=== PATIENT | male | born 1965 | race Caucasian/White ===

== ENCOUNTER 2016-12-22 02:20 | Inpatient (IN) | payer OTHER ==
[~2016-12-22] VITALS: Ht 177.8 cm; Wt 117.0 kg
[~2016-12-22 02:20] MED LIST: LSN/10125 PO; SIMV20TA2 PO
[2016-12-22] MEDS ORDERED: DILTIAZEM HCL 5 MG/ML 5 ML VIAL ONE (02:43)
[2016-12-22] MEDS ORDERED: DILTIAZEM HCL 5 MG/ML 5 ML VIAL IV STA (02:43)
[2016-12-22 02:49] LABS: BASO % 0.6 %; BASO ABS # 0.06 K/uL (0-0.2); COMPLETE YES; EOS % 5.2 %; HEMATOCRIT 47.4 % (42-52); IG% 0.6 %; LYMPH % 15.6 %; LYMPH ABS # 1.64 K/uL (1.2-3.4); MEAN CELL VOLUME 85.4 fL (80-100); MEAN CORPUSCULAR HGB CONC 36.3 g/dl (32-36); MONO % 7.4 %; NEUT % 70.6 %; PLATELET COUNT 230 K/uL (130-400); RED BLOOD COUNT 5.55 M/uL (4.7-6.1); WHITE BLOOD COUNT 10.48 K/uL (4.8-10.8)
[2016-12-22 02:56] LABS: PARTIAL THROMBOPLASTIN RATIO 1.1
[2016-12-22] MEDS ORDERED: LISI-461 PO (03:01)
[2016-12-22] MEDS ORDERED: PRT/20 PO (03:01)
[2016-12-22 03:36] LABS: ALB/GLOB RATIO 1.3 (0.9-2); ALKALINE PHOSPHATASE 72 U/L (45-117); ALT/SGPT 80 U/L (12-78); BLOOD UREA NITROGEN 19 mg/dl (7-18); BUN/CREATININE RATIO 16.1 (10-20); CALCIUM 8.8 mg/dl (8.5-10.1); CARBON DIOXIDE 24 mmol/L (21-32); CHLORIDE 107 mmol/L (98-107); GLUCOSE 133 mg/dl (70-99); SODIUM 142 mmol/L (136-145)
[2016-12-22 03:44] LABS: POTASSIUM 3.6 mmol/L (3.5-5.1)
[2016-12-22 03:49] LABS: AST/SGOT 39 U/L (15-37); CKMB/CK RATIO 1.1 (0-3.0); MAGNESIUM 1.9 mg/dl (1.8-2.4)
[2016-12-22 04:00] LABS: URINE APPEARANCE CLEAR (CLEAR); URINE BILIRUBIN NEG (NEG); URINE COLOR YELLOW; URINE EPITHELIAL CELL AUTO 0-5 /lpf (0-5); URINE NITRITE NEG (NEG); URINE SPECIFIC GRAVITY 1.002 (1.000-1.030); UROBILINOGEN NEG (NEG); ZZUR CULT IF INDIC CLEAN CATCH NO
[2016-12-22 04:05] LABS: MANUAL MICROSCOPIC REQUIRED? NO; REVIEW REQ? NO
[2016-12-22 04:27] LABS: LYME DISEASE AB IGG NEG (NEG); LYME DISEASE AB IGM NEG (NEG)
[2016-12-22] MEDS ORDERED: HEPARIN 25000 UNIT/500 ML D5W ONE (04:50)
[2016-12-22] MEDS ORDERED: HEPARIN SOD 5000 UNIT/0.5 ML CARP ONE (04:50)
[2016-12-22] MEDS ORDERED: ACETAMINOPHEN 325 MG TAB PO PRN (06:00)
[2016-12-22] MEDS ORDERED: ONDANSETRON INJ 2 MG/ML 2 ML VIAL IV PRN (06:00)
[2016-12-22] MEDS ORDERED: POLYETHYLENE (MIRALAX) 17 GM PACK PO PRN (06:00)
--- NOTE | 2016-12-22 06:33 | History and Physical ---
History & Physical Date & Time of Service: Dec 22, 2016 at 06:14 Chief Complaint: Heart Palp Primary Care Physician: Chidi Mauricio M.D. History of Present Illness Source: patient, spouse 51 yoM with HTN presents today after new onset of significant palpitations after laying down to go to sleep. He denies any chest pain or shortness of breath. EMS found that he was in atrial fibrillation with RVR. In the ER HR was 130s and he was given some Cardizem with an improvement in both the rate and symptoms. He denies any recent infectious symptoms, recent medication changes. He denies a h/o palpitations. He was placed on a heparin drip in the ER Past Medical/Surgical History Medical Problems: (1) Erectile dysfunction Status: Chronic (2) GERD (gastroesophageal reflux disease) Status: Chronic (3) H/O prostate cancer Status: Chronic (4) Hypercholesteremia Status: Chronic (5) Hypertension Status: Chronic Family History FH: melanoma SISTER FH: multiple myeloma FATHER FH: prostate cancer FATHER Social History Smoking Status: Never Smoker Smokeless Tobacco Use: No Alcohol Use: none Drug Use: none Marital Status: Housing status: lives with significant other Occupational Status: employed Immunizations History of Influenza Vaccine: Yes Influenza Vaccine Date: Oct 05, 2016 History of Tetanus Vaccine?: Yes Tetanus Immunization Date: Nov 25, 2013 History of Pneumococcal: No History of Hepatitis B Vaccine: No Hepatitis Immunization Date: Jan 01, 2006 Multi-Drug Resistant Organisms History of MDRO: No Allergies Coded Allergies: No Known Allergies (Unverified , 12/22/16) Home Medications Scheduled Cholecalciferol (D 1000), 1,000 UNITS PO DAILY Hctz/Lisinopril (Lisinopril/Hctz 10/12.5 Mg), 1 TAB PO DAILY Pantoprazole (Protonix), 20 MG PO DAILY Simvastatin (Zocor), 20 MG PO QPM Scheduled PRN Ibuprofen Tab (Advil), 200 MG PO DAILY PRN for headache Sildenafil Citrate (Viagra), 1 TAB PO DAILY PRN for intercourse Review of Systems Constitutional: No chills, No fatigue, No fever ENT: No sore throat Respiratory: No cough, No shortness of breath, No wheezing Cardiovascular: + palpitations, No chest pain, No edema Abdomen: No GI bleeding, No constipation, No diarrhea, No nausea, No pain, No vomiting Musculoskeletal: No joint pain, No muscle pain Genitourinary - Male: No urinary frequency, No urinary hesitancy, No urinary incontinence, No urinary urgency Neurologic: No numbness/tingling Hematologic / Lymphatic: No abnormal bleeding/bruising Integumentary: No new/changing skin lesions Physical Exam Vital Signs Date Time Temp Pulse Resp B/P Pulse Ox O2 Delivery O2 Flow Rate FiO2 12/22/16 05:00 76 93 12/22/16 04:59 115/74 12/22/16 04:45 81 96 12/22/16 04:30 82 92 12/22/16 04:29 119/76 12/22/16 04:15 81 96 12/22/16 04:00 74 96 12/22/16 03:45 82 96 12/22/16 03:30 75 95 12/22/16 03:29 112/78 12/22/16 03:15 76 95 12/22/16 03:00 83 94 12/22/16 02:59 122/81 12/22/16 02:53 106/80 12/22/16 02:45 96 95 12/22/16 02:43 96 Room Air 12/22/16 02:43 96 Room Air 12/22/16 02:34 140 12/22/16 02:32 146/86 12/22/16 02:27 36.6 79 18 135/85 98 Room Air GEN: WNWD, in no acute distress, alert and appropriate HEENT: NC/AT, PERRL, normal sclerae CARDIO: reg rate, S1/2 heard without m/g/r LUNGS: CTA bilaterally, no crackles, rales or wheezes, good diaphragmatic excursion ABD: soft, non-tender, non-distended, no rebound or guarding EXTREMITY: RP and DP palpable 2+ bilat, no LE swelling or edema, extremities are warm and well-perfused NEURO: CN 2-12 grossly intact, sensation intact throughout MUSC: 5/5 strength grossly intact throughout, no focal deficits SKIN: warm and dry Diagnostics Laboratory Results Results Past 24 Hours Test 12/22/16 02:40 12/22/16 03:08 12/22/16 03:30 Range/Units White Blood Count 10.48 4.8-10.8 K/uL Red Blood Count 5.55 4.7-6.1 M/uL Hemoglobin 17.2 14.0-18.0 g/dL Hematocrit 47.4 42-52 % Mean Corpuscular Volume 85.4 80-100 fL Mean Corpuscular Hemoglobin 31.0 25-34 pg Mean Corpuscular Hemoglobin Concent 36.3 32-36 g/dl Platelet Count 230 130-400 K/uL Mean Platelet Volume 10.0 7.4-10.4 fL Neutrophils (%) (Auto) 70.6 % Lymphocytes (%) (Auto) 15.6 % Monocytes (%) (Auto) 7.4 % Eosinophils (%) (Auto) 5.2 % Basophils (%) (Auto) 0.6 % Neutrophils # (Auto) 7.40 1.4-6.5 K/uL Lymphocytes # (Auto) 1.64 1.2-3.4 K/uL Monocytes # (Auto) 0.78 0.11-0.59 K/uL Eosinophils # (Auto) 0.54 0-0.5 K/uL Basophils # (Auto) 0.06 0-0.2 K/uL RDW Standard Deviation 39.7 36.4-46.3 fL RDW Coefficient of Variation 12.8 11.5-14.5 % Immature Granulocyte % (Auto) 0.6 % Immature Granulocyte # (Auto) 0.06 0.00-0.02 K/uL Prothrombin Time 11.0 9.0-12.0 SECONDS Prothromb Time International Ratio 1.0 0.9-1.1 Activated Partial Thromboplast Time 27.5 21.0-31.0 SECONDS Partial Thromboplastin Ratio 1.1 Sodium Level 142 136-145 mmol/L Potassium Level 3.6 3.5-5.1 mmol/L Chloride Level 107 98-107 mmol/L Carbon Dioxide Level 24 21-32 mmol/L Anion Gap 11.0 3-11 mmol/L Blood Urea Nitrogen 19 7-18 mg/dl Creatinine 1.20 0.60-1.40 mg/dl Est Creatinine Clear Calc Drug Dose 94.4 ml/min Estimated GFR () 81.2 Estimated GFR (Non- 70.1 BUN/Creatinine Ratio 16.1 10-20 Random Glucose 133 70-99 mg/dl Calcium Level 8.8 8.5-10.1 mg/dl Magnesium Level 1.9 1.8-2.4 mg/dl Total Bilirubin 0.7 0.2-1 mg/dl Aspartate Amino Transf (AST/SGOT) 39 15-37 U/L Alanine Aminotransferase (ALT/SGPT) 80 12-78 U/L Alkaline Phosphatase 72 45-117 U/L Total Creatine Kinase 246 39-308 U/L Creatine Kinase MB 2.7 0.5-3.6 ng/ml Creatine Kinase MB Ratio 1.1 0-3.0 Troponin I < 0.015 0-0.045 ng/ml Total Protein 6.9 6.4-8.2 gm/dl Albumin 3.9 3.4-5.0 gm/dl Globulin 3.0 2.5-4.0 gm/dl Albumin/Globulin Ratio 1.3 0.9-2 Lipase 261 73-393 U/L Thyroid Stimulating Hormone (TSH) 6.600 0.300-4.500 uIu/ml Lyme Disease IgG Antibody NEG NEG Lyme Disease IgM Antibody NEG NEG Bedside Troponin I 0.000 0-0.045 ng/ml Urine Color YELLOW Urine Appearance CLEAR CLEAR Urine pH 6.0 4.5-7.5 Urine Specific [place] 1.002 1.000-1.030 Urine Protein NEG NEG Urine Glucose (UA) NEG NEG Urine Ketones NEG NEG Urine Occult Blood TRACE NEG Urine Nitrite NEG NEG Urine Bilirubin NEG NEG Urine Urobilinogen NEG NEG Urine Leukocyte Esterase NEG NEG Urine WBC (Auto) 0 0-5 /hpf Urine RBC (Auto) 0-4 0-4 /hpf Urine Hyaline Casts (Auto) 0 0-5 /lpf Urine Epithelial Cells (Auto) 0-5 0-5 /lpf Urine Bacteria (Auto) NEG NEG CXR normal EKG EKG: Afib 130, no ST changes Impression Assessment and Plan 51 yoM with HTN presents with new onset atrial fibrillation when he laid down to sleep last night 1. Palpitations 2/2 Atrial fibrillation-uncertain etiology, TSH checked, no HF signs or symptoms, no signs/symptoms of ACS, no murmurs on exam. He does admit to a lot of stress in his life recently. Ordered heparin drip, consulted cards. No PO rate control was started as will defer to cards who will see him soon. 2. Hypertension-controlled, cont home BP med. DVT prophy-heparin drip Full Code Violetta Rosas, DO [place] VTE Prophylaxis VTE Risk Assessment Done? Y/N: Yes Risk Level: Moderate Given or contraindicated: Other Anticoagulation
[2016-12-22] MEDS ORDERED: CHOL100041 PO (06:44)
[2016-12-22] MEDS ORDERED: IBUP-103 PO (06:44)
[2016-12-22] MEDS ORDERED: SILD50TA PO (06:44)
[2016-12-22] MEDS ORDERED: LSN/10125 PO (06:44)
[2016-12-22 07:46] VITALS: O2SAT 96; Ht 177.8 cm; Wt 117.0 kg
--- NOTE | 2016-12-22 07:54 | DIAGNOSTIC IMAGING REPORT ---
CHEST ONE VIEW PORTABLE CLINICAL HISTORY: Palpitations COMPARISON STUDY: 01/02/2012 FINDINGS: The cardiac and mediastinal contours are normal. There is no evidence of focal pulmonary consolidation. There is no evidence of failure. No pleural effusions are visualized.[ IMPRESSION: No active disease in the chest. Electronically signed by: Fernando Sandoval M.D. 12/22/2016 7:52 AM Dictated Date/Time: 12/22/2016 7:52 AM
[2016-12-22] MEDS ORDERED: CHOLECALCIFEROL 1000 INTER.UNIT TAB PO SCH (09:00)
[2016-12-22] MEDS ORDERED: PANTOprazole SOD 40 MG TAB PO SCH (09:00)
[2016-12-22] MEDS ORDERED: LISINOPRIL/HCTZ 10/12.5MG TAB PO SCH (09:00)
[2016-12-22 09:50] VITALS: O2SAT 95
[2016-12-22 09:50] LABS: CKMB/CK RATIO 1.4 (0-3.0)
[2016-12-22 10:57] VITALS: BP 135/92; PULSE 83; TEMP 36.6; O2SAT 95
[2016-12-22] MEDS ORDERED: HEPARIN 25,000 UNIT/500ML D5W 500 ML IV PRN (12:15)
[2016-12-22 12:30] LABS: PARTIAL THROMBOPLASTIN RATIO 2.1
[2016-12-22 15:17] LABS: CKMB/CK RATIO 1.4 (0-3.0)
[2016-12-22] MEDS ORDERED: METOPROLOL SUCC 25MG EXT REL TAB PO ONE (16:30)
--- NOTE | 2016-12-22 16:51 | CARDIOLOGY CONSULTATION ---
DATE OF CONSULTATION: 12/22/2016 REFERRING PHYSICIAN: Dr. Violetta Rosas. REASON FOR CONSULTATION: Atrial fibrillation. CHIEF COMPLAINT ON ADMISSION: Dizziness. HISTORY OF PRESENT ILLNESS: Mr. Rogers is a 51-year-old male with a past medical history of hypertension, erectile dysfunction, dyslipidemia, and prostate cancer. He developed palpitations with associated lightheadedness last evening. He awoke from sleep and spoke with his who assessed his pulse. She noted an irregular rhythm. He was brought to the Emergency Department. Initially he was found to be in atrial fibrillation with a heart rate in the 130s. He was given Cardizem in the Emergency Department. He was then evaluated by internal medicine and admitted to the telemetry unit. The patient converted to normal sinus rhythm at approximately 9:30 a.m. The heparin drip is infusing. He denies any history of TIA, CVA, rheumatic fever as a child, valvular heart disease, diabetes, congestive heart failure, or vascular disease. Notes elevated stress in his work duties. 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 Currently, the patient is asymptomatic and feeling well. He describes palpitations which have been intermittent over the past 12 months, however, have become more frequent over the past 3 months. He experiences palpitations on nearly a daily basis and notices that when he sits to watch television. Denies excessive caffeine or alcohol intake. No history of illicit drug use. Denies any fevers, chills or sick contacts. No exertional chest pain or unusual shortness of breath. His symptoms were initially noted last night after going for a walk with his . Cardiac enzymes are negative. Offers no other complaints at this time. REVIEW OF SYSTEMS: The pertinent positive noted above, a comprehensive 10-system review is otherwise negative. PAST MEDICAL HISTORY: 1. Hypertension. 2. Erectile dysfunction. 3. GERD. 4. Prostate cancer. 5. Dyslipidemia. PAST SURGICAL HISTORY: Denied. FAMILY HISTORY: Melanoma, multiple myeloma, prostate cancer. No family history of atrial fibrillation, cerebrovascular accident, or sudden cardiac . SOCIAL HISTORY: Lifelong nonsmoker. Does not use alcohol or illicit drugs. He is and lives with his . ALLERGIES: No known drug allergies. HOME MEDICATIONS: 1. Zestoretic 10/12.5 mg daily. 2. Protonix 20 mg daily. 3. Zocor 20 mg at bedtime. 4. Ibuprofen as needed. 5. Viagra as needed. IMAGING: Chest x-ray on admission is no acute disease. LABORATORY DATA: Lyme screen is negative. White blood cell count 10.48, hemoglobin is 17.2, platelet count is 230. Sodium 142, potassium 3.6, chloride 107, CO2 is 24, BUN is 19, creatinine is 1.20. Magnesium 1.9. Troponins are undetectable. TSH 6.60. Telemetry demonstrates sinus rhythm currently. PHYSICAL EXAMINATION: VITAL SIGNS: Temperature is 36.6 degrees centigrade, pulse 83 beats per minute and regular, respiratory rate is 18 breaths per minute, blood pressure 135/92. SAO2 is 95% on room air. GENERAL: NAD, awake, alert and oriented x3. THROAT: His mucous membranes are moist. There is no scleral icterus. Conjunctivae are pink. NECK: Supple. There is no JVD or HJR. No carotid bruit. HEART: Regular with a normal S1 and S2. There is no murmur, rub, or gallop. LUNGS: Clear without rales, rhonchi or wheeze. ABDOMEN: Soft and nontender. No rebound or guarding. Normal bowel sounds. EXTREMITIES: Warm and dry. There is no clubbing, cyanosis or edema. NEUROLOGIC: Demonstrates no focal deficit. FINAL IMPRESSION: 1. Paroxysmal atrial fibrillation with initial rapid ventricular response. The patient spontaneously converted to normal sinus rhythm this a.m. CHADS2 score equals 1. 2. Hypertension -- controlled. 3. Dyslipidemia. PLAN AND RECOMMENDATIONS: I had a long discussion with the patient and his regarding the natural history and pathophysiology of atrial fibrillation associated stroke risk. Recommend low-dose beta-laury therapy, Toprol-XL 25 mg daily. The patient will receive a dose x1 now. Warfarin versus DOAC medications reviewed at length. The patient and his are leaning towards DOAC therapy at this time, they would like to discuss further. A resting 2D transthoracic echo is pending currently. I will review his echo. If there are no structural abnormalities will plan for at least short term DOAC therapy in addition to beta-laury therapy. Would recommend outpatient cardiology followup in 2-4 weeks with case monitor at that time. The patient and his are agreeable. Further recommendations pending review of echocardiogram. Thank you for allowing me to take part in the care of your patient.
--- NOTE | 2016-12-22 17:06 | ECHOCARDIOGRAM REPORT ---
*NOTICE TO RECEIVING REPUBLICAN AGENCY This information is strictly Confidential and protected under [place] law. [place] law prohibits you from making any further disclosure of this information unless further disclosure is expressly permitted by the written consent of the person to whom it pertains or is authorized by law. A general authorization for the release of medical or other information is not sufficient for this purpose. Hospital accepts no responsibility if the information is made available to any other person, INCLUDING THE PATIENT. Interpretation Summary * Name: JONATHON BURNETT Study Date: 12/22/2016 02:55 PM * Patient Location: [facility] [address][id number] * : 1965 (M/d/yyyy) Gender: Male Height: 70 in * Age: 51 yrs Ethnicity: [place] Weight: 257 lb * Ordering Physician: Gio Rosas Physician: Self, Referred * Performed By: Jonathon Yoon RDCS * * Reason For Study: Palpitations * BSA: 2.3 m2 * The study was technically adequate. * Compared to prior study, there is no significant change. * -- Conclusions -- * Left ventricular systolic function is normal. * Ejection Fraction = 60-65%. * There is mild concentric left ventricular hypertrophy. * The left atrium is moderately dilated. * Grade I diastolic dysfunction, (abnormal relaxation pattern). * No significnat valvular pathology. Procedure Details * A complete two-dimensional transthoracic echocardiogram was performed (2D, M-mode, Doppler and color flow Doppler). Left Ventricle * The left ventricle is normal in size. * There is mild concentric left ventricular hypertrophy. * Left ventricular systolic function is normal. * Ejection Fraction = 60-65%. * The left ventricular wall motion is normal. Right Ventricle * The right ventricle is normal size. * The right ventricular systolic function is normal as assessed by tricuspid annular plane systolic excursion (TAPSE) (normal >1.5 cm). Atria * The left atrium is moderately dilated. * Right atrial size is normal. * There is no evidence of atrial septal defect, but resolution does not allow assessment for a patent foramen ovale. Mitral Valve * The mitral valve is normal. * There is no mitral valve stenosis. * Significant mitral regurgitation is absent. Tricuspid Valve * The tricuspid valve is normal. * There is no tricuspid stenosis. * Significant tricuspid regurgitation is absent. Aortic Valve * The aortic valve is trileaflet. * Aortic stenosis is absent. * There is no significant aortic regurgitation. Pulmonic Valve * The pulmonary valve is not well seen, but the Doppler examination is normal without significant regurgitation or stenosis. Great Vessels * The aortic root and proximal ascending aorta are normal sized. Pericardium/Pleural * There is no pericardial effusion. Great Vessels * Normal inferior vena cava diameter and respiratory variation suggests normal central venous pressure. Left Ventricular Diastolic Function * Grade I diastolic dysfunction, (abnormal relaxation pattern). MMode 2D Measurements and Calculations IVSd 1.7 cm IVSs 2.1 cm LVIDd 4.1 cm LVIDs 2.8 cm LVPWd 1.3 cm LVPWs 1.9 cm IVS/LVPW 1.4 FS 31.7 % EDV(Teich) 73.2 ml ESV(Teich) 29.2 ml EF(Teich) 60.2 % EDV(cubed) 67.7 ml ESV(cubed) 21.6 ml EF(cubed) 68.1 % % IVS thick 23.4 % % LVPW thick 50.7 % LV mass(C)d 240.7 grams LV mass(C)dI 103.6 grams/m\S\2 LV mass(C)s 250.4 grams LV mass(C)sI 107.8 grams/m\S\2 SV(Teich) 44.0 ml SI(Teich) 19.0 ml/m\S\2 SV(cubed) 46.1 ml SI(cubed) 19.9 ml/m\S\2 Ao root diam 3.4 cm Ao root area 9.1 cm\S\2 ACS 2.0 cm LA dimension 4.6 cm asc Aorta Diam 3.5 cm LA/Ao 1.4 LVOT diam 2.4 cm LVOT area 4.5 cm\S\2 LVAd ap4 27.7 cm\S\2 LVLd ap4 8.5 cm EDV(MOD-sp4) 74.3 ml LVAs ap4 15.2 cm\S\2 LVLs ap4 6.9 cm ESV(MOD-sp4) 28.2 ml EF(MOD-sp4) 62.0 % LVAd ap2 16.6 cm\S\2 LVLd ap2 7.7 cm EDV(MOD-sp2) 30.0 ml LVAs ap2 9.6 cm\S\2 LVLs ap2 6.9 cm ESV(MOD-sp2) 12.0 ml EF(MOD-sp2) 60.0 % SV(MOD-sp4) 46.1 ml SI(MOD-sp4) 19.9 ml/m\S\2 SV(MOD-sp2) 18.0 ml SI(MOD-sp2) 7.8 ml/m\S\2 Doppler Measurements and Calculations MV E max esteban 52.9 cm/sec MV A max esteban 50.4 cm/sec MV E/A 1.0 MV dec time 0.24 sec Ao V2 max 117.3 cm/sec Ao max PG 5.5 mmHg Ao max PG (full) 1.7 mmHg YANCY(V,A) 3.7 cm\S\2 YANCY(V,D) 3.7 cm\S\2 LV V1 max PG 3.8 mmHg LV V1 max 97.9 cm/sec PA V2 max 98.2 cm/sec PA max PG 3.9 mmHg
[2016-12-22] MEDS ORDERED: APIX1TAB3 PO (17:51)
[2016-12-22] MEDS ORDERED: TPRSR25 PO (17:51)
--- NOTE | 2016-12-22 17:53 | Discharge Instructions ---
Discharge Instructions Admission Reason for Admission: New Onset Atrial Fibrillation Discharge Discharge Diagnosis / Problem: PAF with RVR-reverted to SR ,HTN Discharge Goals Goal(s): Prevent Disease Progression Activity Recommendations Activity Limitations: resume your previous activity . Instructions / Follow-Up Instructions / Follow-Up Will call with appointments Current Hospital Diet Patient's current hospital diet: AHA Diet (Heart Healthy) Discharge Diet Recommended Diet: Regular Diet Pending Studies Studies pending at discharge: no Medical Emergencies . Who to Call and When: Medical Emergencies: If at any time you feel your situation is an emergency, please call 911 immediately. . Non-Emergent Contact Non-Emergency issues call your: Primary Care Provider . . "Provider Documentation" section prepared by Olivia Holm. VTE Core Measure Inpt VTE Proph given/why not?: Unfractionated heparin SQ (Eliquis), Other Anticoagulation
[2016-12-22 18:06] VITALS: BP 135/92; PULSE 83; TEMP 36.6; O2SAT 95
[2016-12-22] MEDS ORDERED: APIXABAN 2.5 MG TAB PO SCH (21:00)
[2016-12-22] MEDS ORDERED: SIMVASTATIN 20 MG TAB PO SCH (21:00)
[2016-12-23] MEDS ORDERED: METOPROLOL SUCC 25MG EXT REL TAB PO SCH (09:00)
--- NOTE | 2016-12-23 11:38 | Progress Note ---
Internal Med Progress Note Date of Service: Dec 22, 2016. Provider Documentation: SUBJECTIVE: The Patient was seen and examined Palpitation since 10 PM last night Resolve around 10AM this morning Denies any symptoms associated with it OBJECTIVE: Vital Signs-as noted below Exam: General-No distress at rest Eyes-normal ENT-normal Neck-supple Lungs-Clear to auscultate bilaterally Heart-Regular,no murmur appreciated Abdomen-Benign,no masses,bowel sound present Extremities-No edema Neuro-AAOx3 Lab data as noted below. ASSESSMENT & PLAN: Atrial Fibrillation with RVR Presented with Palpitations No ACS Has been started on IV heparin and IV Cardizem Reverted to SR this morning Cardiology consulted Hypertension-controlled, Cont home BP med. Controlled now Hyperlipidemia On Statin GERD Continue Protonix DVT prophy-heparin drip Full Code Vital Signs: Date Time Temp Pulse Resp B/P Pulse Ox O2 Delivery O2 Flow Rate FiO2 12/22/16 18:06 36.6 83 18 95 Room Air 12/22/16 15:41 Room Air Lab Results: Results Past 24 Hours Test 12/22/16 11:47 12/22/16 14:00 12/22/16 14:30 Range/Units Activated Partial Thromboplast Time 55.6 21.0-31.0 SECONDS Partial Thromboplastin Ratio 2.1 Creatine Kinase MB Ratio 1.4 0-3.0 Total Creatine Kinase 143 39-308 U/L Creatine Kinase MB 2.0 0.5-3.6 ng/ml Troponin I < 0.015 0-0.045 ng/ml
--- NOTE | 2016-12-23 11:41 | Discharge Summary ---
Discharge Summary Date of Service Dec 23, 2016. Discharge Summary Admission Date: Dec 22, 2016 at 06:13 Discharge Date: Dec 22, 2016 Discharge Disposition: Home Principal Diagnosis: PAF with RVR-reverted to SR ,HTN Secondary Diagnoses/Problems: Please see H&P Consultations: Cardiology Medication Reconciliation New Medications: Apixaban (Eliquis) 5 Mg Tab 5 MG PO BID, #60 TAB Metoprolol Succinate (Metoprolol Succinate ER) 25 Mg Tabcr 25 MG PO QAM for 30 Days, #30 Continued Medications: Cholecalciferol (D 1000) 1,000 Unit Cap 1000 UNITS PO DAILY Hctz/Lisinopril (Lisinopril/Hctz 10/12.5 Mg) 1 Ea Tab 1 TAB PO DAILY, 5 Refills Ibuprofen Tab (Advil) 200 Mg Tab 200 MG PO DAILY PRN for headache, TAB Try to avoid and try Tylenol instead Pantoprazole (Protonix) 20 Mg Tab 20 MG PO DAILY, #30 TAB Sildenafil Citrate (Viagra) 50 Mg Tab 1 TAB PO DAILY PRN for intercourse, 5 Refills Simvastatin (Zocor) 20 Mg Tab 20 MG PO QPM for 30 Days, 4 Refills Admission Information HPI (per Admitting provider): 51 yoM with HTN presents today after new onset of significant palpitations after laying down to go to sleep. He denies any chest pain or shortness of breath. EMS found that he was in atrial fibrillation with RVR. In the ER HR was 130s and he was given some Cardizem with an improvement in both the rate and symptoms. He denies any recent infectious symptoms, recent medication changes. He denies a h/o palpitations. He was placed on a heparin drip in the ER Past Medical/Surgical History Medical Problems: (1) Erectile dysfunction Status: Chronic (2) GERD (gastroesophageal reflux disease) Status: Chronic (3) H/O prostate cancer Status: Chronic (4) Hypercholesteremia Status: Chronic (5) Hypertension Status: Chronic Family History FH: melanoma SISTER FH: multiple myeloma FATHER FH: prostate cancer FATHER Social History Smoking Status: Never Smoker Smokeless Tobacco Use: No Alcohol Use: none Drug Use: none Marital Status: Housing status: lives with significant other Occupational Status: employed Immunizations History of Influenza Vaccine: Yes Influenza Vaccine Date: Oct 05, 2016 History of Tetanus Vaccine?: Yes Tetanus Immunization Date: Nov 25, 2013 History of Pneumococcal: No History of Hepatitis B Vaccine: No Hepatitis Immunization Date: Jan 01, 2006 Multi-Drug Resistant Organisms History of MDRO: No Allergies Coded Allergies: No Known Allergies (Unverified , 12/22/16) Home Medications Scheduled Cholecalciferol (D 1000), 1,000 UNITS PO DAILY Hctz/Lisinopril (Lisinopril/Hctz 10/12.5 Mg), 1 TAB PO DAILY Pantoprazole (Protonix), 20 MG PO DAILY Simvastatin (Zocor), 20 MG PO QPM Scheduled PRN Ibuprofen Tab (Advil), 200 MG PO DAILY PRN for headache Sildenafil Citrate (Viagra), 1 TAB PO DAILY PRN for intercourse Review of Systems Constitutional: No chills, No fatigue, No fever ENT: No sore throat Respiratory: No cough, No shortness of breath, No wheezing Cardiovascular: + palpitations, No chest pain, No edema Abdomen: No GI bleeding, No constipation, No diarrhea, No nausea, No pain, No vomiting Musculoskeletal: No joint pain, No muscle pain Genitourinary - Male: No urinary frequency, No urinary hesitancy, No urinary incontinence, No urinary urgency Neurologic: No numbness/tingling Hematologic / Lymphatic: No abnormal bleeding/bruising Integumentary: No new/changing skin lesions Physical Ex - H&P Physical Exam Vital Signs Date Time Temp Pulse Resp B/P Pulse Ox O2 Delivery O2 Flow Rate FiO2 12/22/16 05:00 76 93 12/22/16 04:59 115/74 12/22/16 04:45 81 96 12/22/16 04:30 82 92 12/22/16 04:29 119/76 12/22/16 04:15 81 96 12/22/16 04:00 74 96 12/22/16 03:45 82 96 12/22/16 03:30 75 95 12/22/16 03:29 112/78 12/22/16 03:15 76 95 12/22/16 03:00 83 94 12/22/16 02:59 122/81 12/22/16 02:53 106/80 12/22/16 02:45 96 95 12/22/16 02:43 96 Room Air 12/22/16 02:43 96 Room Air 12/22/16 02:34 140 12/22/16 02:32 146/86 12/22/16 02:27 36.6 79 18 135/85 98 Room Air GEN: WNWD, in no acute distress, alert and appropriate HEENT: NC/AT, PERRL, normal sclerae CARDIO: reg rate, S1/2 heard without m/g/r LUNGS: CTA bilaterally, no crackles, rales or wheezes, good diaphragmatic excursion ABD: soft, non-tender, non-distended, no rebound or guarding EXTREMITY: RP and DP palpable 2+ bilat, no LE swelling or edema, extremities are warm and well-perfused NEURO: CN 2-12 grossly intact, sensation intact throughout MUSC: 5/5 strength grossly intact throughout, no focal deficits SKIN: warm and dry Diagnostics - H&P Diagnostics Laboratory Results Results Past 24 Hours Test 12/22/16 02:40 12/22/16 03:08 12/22/16 03:30 Range/Units White Blood Count 10.48 4.8-10.8 K/uL Red Blood Count 5.55 4.7-6.1 M/uL Hemoglobin 17.2 14.0-18.0 g/dL Hematocrit 47.4 42-52 % Mean Corpuscular Volume 85.4 80-100 fL Mean Corpuscular Hemoglobin 31.0 25-34 pg Mean Corpuscular Hemoglobin Concent 36.3 32-36 g/dl Platelet Count 230 130-400 K/uL Mean Platelet Volume 10.0 7.4-10.4 fL Neutrophils (%) (Auto) 70.6 % Lymphocytes (%) (Auto) 15.6 % Monocytes (%) (Auto) 7.4 % Eosinophils (%) (Auto) 5.2 % Basophils (%) (Auto) 0.6 % Neutrophils # (Auto) 7.40 1.4-6.5 K/uL Lymphocytes # (Auto) 1.64 1.2-3.4 K/uL Monocytes # (Auto) 0.78 0.11-0.59 K/uL Eosinophils # (Auto) 0.54 0-0.5 K/uL Basophils # (Auto) 0.06 0-0.2 K/uL RDW Standard Deviation 39.7 36.4-46.3 fL RDW Coefficient of Variation 12.8 11.5-14.5 % Immature Granulocyte % (Auto) 0.6 % Immature Granulocyte # (Auto) 0.06 0.00-0.02 K/uL Prothrombin Time 11.0 9.0-12.0 SECONDS Prothromb Time International Ratio 1.0 0.9-1.1 Activated Partial Thromboplast Time 27.5 21.0-31.0 SECONDS Partial Thromboplastin Ratio 1.1 Sodium Level 142 136-145 mmol/L Potassium Level 3.6 3.5-5.1 mmol/L Chloride Level 107 98-107 mmol/L Carbon Dioxide Level 24 21-32 mmol/L Anion Gap 11.0 3-11 mmol/L Blood Urea Nitrogen 19 7-18 mg/dl Creatinine 1.20 0.60-1.40 mg/dl Est Creatinine Clear Calc Drug Dose 94.4 ml/min Estimated GFR () 81.2 Estimated GFR (Non- 70.1 BUN/Creatinine Ratio 16.1 10-20 Random Glucose 133 70-99 mg/dl Calcium Level 8.8 8.5-10.1 mg/dl Magnesium Level 1.9 1.8-2.4 mg/dl Total Bilirubin 0.7 0.2-1 mg/dl Aspartate Amino Transf (AST/SGOT) 39 15-37 U/L Alanine Aminotransferase (ALT/SGPT) 80 12-78 U/L Alkaline Phosphatase 72 45-117 U/L Total Creatine Kinase 246 39-308 U/L Creatine Kinase MB 2.7 0.5-3.6 ng/ml Creatine Kinase MB Ratio 1.1 0-3.0 Troponin I < 0.015 0-0.045 ng/ml Total Protein 6.9 6.4-8.2 gm/dl Albumin 3.9 3.4-5.0 gm/dl Globulin 3.0 2.5-4.0 gm/dl Albumin/Globulin Ratio 1.3 0.9-2 Lipase 261 73-393 U/L Thyroid Stimulating Hormone (TSH) 6.600 0.300-4.500 uIu/ml Lyme Disease IgG Antibody NEG NEG Lyme Disease IgM Antibody NEG NEG Bedside Troponin I 0.000 0-0.045 ng/ml Urine Color YELLOW Urine Appearance CLEAR CLEAR Urine pH 6.0 4.5-7.5 Urine Specific [place] 1.002 1.000-1.030 Urine Protein NEG NEG Urine Glucose (UA) NEG NEG Urine Ketones NEG NEG Urine Occult Blood TRACE NEG Urine Nitrite NEG NEG Urine Bilirubin NEG NEG Urine Urobilinogen NEG NEG Urine Leukocyte Esterase NEG NEG Urine WBC (Auto) 0 0-5 /hpf Urine RBC (Auto) 0-4 0-4 /hpf Urine Hyaline Casts (Auto) 0 0-5 /lpf Urine Epithelial Cells (Auto) 0-5 0-5 /lpf Urine Bacteria (Auto) NEG NEG CXR normal EKG EKG: Afib 130, no ST changes Impression - H&P Impression Assessment and Plan 51 yoM with HTN presents with new onset atrial fibrillation when he laid down to sleep last night 1. Palpitations 2/2 Atrial fibrillation-uncertain etiology, TSH checked, no HF signs or symptoms, no signs/symptoms of ACS, no murmurs on exam. He does admit to a lot of stress in his life recently. Ordered heparin drip, consulted cards. No PO rate control was started as will defer to cards who will see him soon. 2. Hypertension-controlled, cont home BP med. DVT prophy-heparin drip Full Code Violetta Rosas, DO [place] VTE Prophylaxis VTE Risk Assessment Done? Y/N: Yes Risk Level: Moderate Given or contraindicated: Other Anticoagulation Physical Exam (per Admitting): GEN: WNWD, in no acute distress, alert and appropriate HEENT: NC/AT, PERRL, normal sclerae CARDIO: reg rate, S1/2 heard without m/g/r LUNGS: CTA bilaterally, no crackles, rales or wheezes, good diaphragmatic excursion ABD: soft, non-tender, non-distended, no rebound or guarding EXTREMITY: RP and DP palpable 2+ bilat, no LE swelling or edema, extremities are warm and well-perfused NEURO: CN 2-12 grossly intact, sensation intact throughout MUSC: 5/5 strength grossly intact throughout, no focal deficits SKIN: warm and dry Hospital Course ASSESSMENT & PLAN: Atrial Fibrillation with RVR Presented with Palpitations No ACS Has been started on IV heparin and IV Cardizem Reverted to SR this morning Cardiology consulted Hypertension-controlled, Cont home BP med. Controlled now Hyperlipidemia On Statin GERD Continue Protonix DVT prophy-heparin drip Full Code Discussed with Cardiology Can go home on Toprol XL and Eliquis Total time spent on discharge = 35 minutes This includes examination of the patient, discharge planning, medication reconciliation, and communication with other providers. Discharge Instructions Admission Reason for Admission: New Onset Atrial Fibrillation Discharge Discharge Diagnosis / Problem: PAF with RVR-reverted to SR ,HTN Discharge Goals Goal(s): Prevent Disease Progression Activity Recommendations Activity Limitations: resume your previous activity . Instructions / Follow-Up Instructions / Follow-Up Will call with appointments Current Hospital Diet Patient's current hospital diet: AHA Diet (Heart Healthy) Discharge Diet Recommended Diet: Regular Diet Pending Studies Studies pending at discharge: no Medical Emergencies . Who to Call and When: Medical Emergencies: If at any time you feel your situation is an emergency, please call 911 immediately. . Non-Emergent Contact Non-Emergency issues call your: Primary Care Provider . . "Provider Documentation" section prepared by Olivia Holm. VTE Core Measure Inpt VTE Proph given/why not?: Unfractionated heparin SQ (Eliquis), Other Anticoagulation <Electronically signed by Olivia Holm M.D.> Additional Copies To Chidi Mauricio M.D.
--- NOTE | 2016-12-26 11:16 | EMERGENCY ROOM VISIT NOTE ---
History First contact with patient: 02:33 Chief Complaint: PALPITATIONS Stated Complaint: NEW ONSET ATRIAL FIBRILLATION Nursing Triage Summary: pt c/o heart palpitations since around 2329, pt was unable to sleep due to it, no cardiac hx. pt states his jaw hurts but he also has tmj, also getting dizzy with change in position History of Present Illness The patient is a 51 year old male who presents to the Emergency Department by private vehicle for evaluation of his palpitations and dizziness with movement. The patient reports that while laying in bed this evening at 11 PM he noticed that his heart was racing and felt a fluttering sensation as well. In addition , he noticed dizziness with changes in position. He denies any pain in his chest, however rating his discomfort a 0/10. He reports no history of similar symptoms. He was enjoying his typical state of good health and actually had gone a walk this evening with his without issue. The patient denies any history of coronary artery disease. He does report a history of hypertension as well as hyperlipidemia. The patient denies any significant family cardiac disease otherwise. He denies any fevers, chills, recent illness, headaches, slurred speech, facial droop, unilateral weakness/numbness, chest pain, hemoptysis, nausea, vomiting, or abdominal pain. He denies any recent alcohol use. He reports no recent stimulant use. Review of Systems A complete 10-point Review of Systems was discussed with the patient, with pertinent positives and negatives listed in the History of Present Illness. All remaining Review of Systems questions can be considered negative unless otherwise specified. Past Medical/Surgical History Medical Problems: (1) CA head of pancreas (2) Erectile dysfunction (3) GERD (gastroesophageal reflux disease) (4) H/O prostate cancer (5) Hypercholesteremia (6) Hypertension Surgical Problems: (1) S/P prostatectomy Family History FH: melanoma SISTER FH: multiple myeloma FATHER FH: prostate cancer FATHER Social History Smoking Status: Never Smoker Smokeless Tobacco Use: No Alcohol Use: none Drug Use: none Marital Status: Occupation Status: employed Current/Historical Medications Scheduled Apixaban (Eliquis), 5 MG PO BID Cholecalciferol (D 1000), 1,000 UNITS PO DAILY Hctz/Lisinopril (Lisinopril/Hctz 10/12.5 Mg), 1 TAB PO DAILY Metoprolol Succinate (Metoprolol Succinate ER), 25 MG PO QAM Pantoprazole (Protonix), 20 MG PO DAILY Simvastatin (Zocor), 20 MG PO QPM Scheduled PRN Ibuprofen Tab (Advil), 200 MG PO DAILY PRN for headache Sildenafil Citrate (Viagra), 1 TAB PO DAILY PRN for intercourse Allergies Coded Allergies: No Known Allergies (Unverified , 12/22/16) Physical Exam Vital Signs Date Time Temp Pulse Resp B/P Pulse Ox O2 Delivery O2 Flow Rate FiO2 12/22/16 06:05 82 95 12/22/16 05:59 116/81 12/22/16 05:35 83 94 12/22/16 05:29 121/90 12/22/16 05:05 86 97 12/22/16 05:00 76 93 12/22/16 04:59 115/74 12/22/16 04:45 81 96 12/22/16 04:30 82 92 12/22/16 04:29 119/76 12/22/16 04:15 81 96 12/22/16 04:00 74 96 12/22/16 03:45 82 96 12/22/16 03:30 75 95 12/22/16 03:29 112/78 12/22/16 03:15 76 95 12/22/16 03:00 83 94 12/22/16 02:59 122/81 12/22/16 02:53 106/80 12/22/16 02:45 96 95 12/22/16 02:43 96 Room Air 12/22/16 02:43 96 Room Air 12/22/16 02:34 140 12/22/16 02:32 146/86 12/22/16 02:27 36.6 79 18 135/85 98 Room Air Pain Rating (0-10): 0 Physical Exam VITAL SIGNS - Vital signs and nursing notes were reviewed. GENERAL - 51-year-old male appearing his stated age who is in no acute distress. Communicates well with provider and answers questions appropriately. LUNGS - Chest wall symmetric without accessory muscle use, intercostals retractions, or central cyanosis. Normal vesicular breath sounds CTA B/L. No wheezes, rales, or rhonchi appreciated. CARDIAC - RRR with S1/S2. No murmur, rubs, or gallops appreciated. No reproducible tenderness to palpation appreciated over the anterior chest wall. ABDOMEN - Abdominal contour obese and without pulsations or visible masses. BS normoactive all four quadrants. No tenderness, palpable masses, hepatosplenomegaly, or ascites noted. EXTREMITIES - No clubbing or peripheral cyanosis. No pretibial edema present. +3 /5 radial and dorsalis pedis pulses palpated throughout. +5/5 strength noted in UE/LE bilaterally. NEUROLOGIC - Cranial nerves II through XII grossly intact. Sensory intact to light touch throughout. PSYCH - A&Ox3 and cooperates fully with examiner. Pt is very pleasant and interacts well with examiner. Medical Decision & Procedures ER Provider Diagnostic Interpretation: Radiological imaging and reports were reviewed by myself. Radiologist's Interpretation as follows: CHEST ONE VIEW PORTABLE CLINICAL HISTORY: Palpitations COMPARISON STUDY: 01/02/2012 FINDINGS: The cardiac and mediastinal contours are normal. There is no evidence of focal pulmonary consolidation. There is no evidence of failure. No pleural effusions are visualized.[ IMPRESSION: No active disease in the chest. Laboratory Results 12/22/16 02:40 Red Blood Count 5.55, Mean Corpuscular Volume 85.4, Mean Corpuscular Hemoglobin 31.0, Mean Corpuscular Hemoglobin Concent 36.3, Mean Platelet Volume 10.0, Neutrophils (%) (Auto) 70.6, Lymphocytes (%) (Auto) 15.6, Monocytes (%) (Auto) 7.4, Eosinophils (%) (Auto) 5.2, Basophils (%) (Auto) 0.6, Neutrophils # (Auto) 7.40, Lymphocytes # (Auto) 1.64, Monocytes # (Auto) 0.78, Eosinophils # (Auto) 0.54, Basophils # (Auto) 0.06 12/22/16 02:40 Test 12/22/16 02:40 12/22/16 03:08 12/22/16 03:30 White Blood Count 10.48 K/uL (4.8-10.8) Red Blood Count 5.55 M/uL (4.7-6.1) Hemoglobin 17.2 g/dL (14.0-18.0) Hematocrit 47.4 % (42-52) Mean Corpuscular Volume 85.4 fL (80-100) Mean Corpuscular Hemoglobin 31.0 pg (25-34) Mean Corpuscular Hemoglobin Concent 36.3 g/dl (32-36) Platelet Count 230 K/uL (130-400) Mean Platelet Volume 10.0 fL (7.4-10.4) Neutrophils (%) (Auto) 70.6 % Lymphocytes (%) (Auto) 15.6 % Monocytes (%) (Auto) 7.4 % Eosinophils (%) (Auto) 5.2 % Basophils (%) (Auto) 0.6 % Neutrophils # (Auto) 7.40 K/uL (1.4-6.5) Lymphocytes # (Auto) 1.64 K/uL (1.2-3.4) Monocytes # (Auto) 0.78 K/uL (0.11-0.59) Eosinophils # (Auto) 0.54 K/uL (0-0.5) Basophils # (Auto) 0.06 K/uL (0-0.2) RDW Standard Deviation 39.7 fL (36.4-46.3) RDW Coefficient of Variation 12.8 % (11.5-14.5) Immature Granulocyte % (Auto) 0.6 % Immature Granulocyte # (Auto) 0.06 K/uL (0.00-0.02) Prothrombin Time 11.0 SECONDS (9.0-12.0) Prothromb Time International Ratio 1.0 (0.9-1.1) Anion Gap 11.0 mmol/L (3-11) Est Creatinine Clear Calc Drug Dose 94.4 ml/min Estimated GFR () 81.2 Estimated GFR (Non- 70.1 BUN/Creatinine Ratio 16.1 (10-20) Calcium Level 8.8 mg/dl (8.5-10.1) Magnesium Level 1.9 mg/dl (1.8-2.4) Total Bilirubin 0.7 mg/dl (0.2-1) Aspartate Amino Transf (AST/SGOT) 39 U/L (15-37) Alanine Aminotransferase (ALT/SGPT) 80 U/L (12-78) Alkaline Phosphatase 72 U/L (45-117) Total Protein 6.9 gm/dl (6.4-8.2) Albumin 3.9 gm/dl (3.4-5.0) Globulin 3.0 gm/dl (2.5-4.0) Albumin/Globulin Ratio 1.3 (0.9-2) Lipase 261 U/L (73-393) Thyroid Stimulating Hormone (TSH) 6.600 uIu/ml (0.300-4.500) Lyme Disease IgG Antibody NEG (NEG) Lyme Disease IgM Antibody NEG (NEG) Bedside Troponin I 0.000 ng/ml (0-0.045) Urine Color YELLOW Urine Appearance CLEAR (CLEAR) Urine pH 6.0 (4.5-7.5) Urine Specific [place] 1.002 (1.000-1.030) Urine Protein NEG (NEG) Urine Glucose (UA) NEG (NEG) Urine Ketones NEG (NEG) Urine Occult Blood TRACE (NEG) Urine Nitrite NEG (NEG) Urine Bilirubin NEG (NEG) Urine Urobilinogen NEG (NEG) Urine Leukocyte Esterase NEG (NEG) Urine WBC (Auto) 0 /hpf (0-5) Urine RBC (Auto) 0-4 /hpf (0-4) Urine Hyaline Casts (Auto) 0 /lpf (0-5) Urine Epithelial Cells (Auto) 0-5 /lpf (0-5) Urine Bacteria (Auto) NEG (NEG) Medications Administered Medications (Trade) Dose Ordered Sig/Lisa Route Start Time Stop Time Status Last Admin Dose Admin Diltiazem HCl (Cardizem Inj) 20 mg NOW STAT IV 12/22/16 02:43 12/22/16 02:44 DC 12/22/16 02:49 20 MG Heparin Sodium/ Dextrose (Heparin 25,000 Unit/500ml D5W) 25,000 unit STK-MED ONCE .ROUTE 12/22/16 04:50 12/22/16 04:52 DC 12/22/16 05:01 1,650 UNIT Heparin Sodium (Porcine) (Heparin Sq 5000 Unit/0.5ml) 10,000 unit STK-MED ONCE .ROUTE 12/22/16 04:50 12/22/16 04:53 DC 12/22/16 05:03 7,000 UNIT Acetaminophen (Tylenol Tab) 650 mg Q4H PRN PO 12/22/16 06:00 12/22/16 20:26 DC 12/22/16 17:13 650 MG Procedure Patient was placed on the monitoring coordinator and monitored throughout the entire extent of their stay. In addition, the patient's pulse oximetry was monitored throughout the entire stay. Any abnormalities or aberrancies were addressed appropriately. ECG Indication: palpitations Rate (beats per minute): 130 Rhythm: atrial fibrillation Findings: ST depression (Lateral) Comparison ECG Date: a.fib when compared to NRS from 01/03/2012. ED Course I was approached by nursing staff and asked to see the patient emergently secondary to patient's symptoms and EKG findings concerning for acute atrial fibrillation with a heart rate in the 130s. Patient was seen and evaluated by myself in the trauma room B1. Labs were drawn, saline lock in place. EKG and chest x-rays were obtained. Case was discussed with my attending physician. Patient was treated with 20 mg Cardizem intravenously with moderate decrease in heart rate. The patient remains in A. fib, however. The patient clinically feels much better at this time and is less lightheaded. Chest x-ray is unremarkable. Cardiac enzymes are not elevated. Patient was started on heparin intravenously [facility] and [facility]. Patient admitted in fair condition. Medical Decision Given the patient's presentation, I did elect to perform the above-mentioned workup. The patient presents today with new onset atrial fibrillation. He was found to be experiencing rapid ventricular response per his EKG. He is lightheaded. He is normotensive, thankfully, however the patient is certain he symptomatically with lightheadedness. The patient responded well to emergent intravenous Cardizem with adequate declining his heart rate. His blood pressure responded appropriately as well. The patient was heparinized as he had persistent A. fib while in the emergency setting. The patient will be admitted to the hospitalist program for continued management and further evaluation. The patient was admitted in stable condition. In the evaluation and treatment of this patient, the following differential diagnoses were considered: [place], ASC, Dysrhythmia, Angina, Mediastinitis, GERD, Esophagitis, PE, Pneumonia, Bronchitis, Costochondritis, Rib Fracture, Zoster. Impression Primary Impression: Atrial fibrillation with rapid ventricular response Critical Care I have personally spent greater than 35 minutes of critical care time in the direct management of this patient. This includes bedside care, interpretation of diagnostic studies, and testing, discussion with consultants, patient, and family members, and other required patient management activities. This 35 minutes is in excess of all separately billable procedures. Departure Information Dispostion Admitted as an inpatient Condition FAIR Prescriptions Apixaban (ELIQUIS) 5 Mg Tab 5 MG PO BID, #60 TAB Prov: Olivia Holm M.D. 12/22/16 Metoprolol Succinate (Metoprolol Succinate ER) 25 Mg Tabcr 25 MG PO QAM for 30 Days, #30 Prov: Olivia Holm M.D. 12/22/16 Referrals Chidi Mauricio M.D. (PCP) Forms WORK / SCHOOL INSTRUCTIONS, HOME CARE DOCUMENTATION FORM, IMPORTANT VISIT INFORMATION Patient Instructions Replaced By [facility]
== END 2016-12-22 19:15 | disposition home or self-care (01) | DRG 310 ==
LOC: ENRESERVTM → ENRESERVDT → C.EDB 02:21 → C.MED 06:13
PROVIDERS: ADMIT Hospitalist; ATTEND Internal Medicine
DX: I48.0 Paroxysmal atrial fibrillation (principal); I10 Essential (primary) hypertension; K21.9 Gastro-esophageal reflux disease without esophagitis; E78.00 Pure hypercholesterolemia, unspecified; E78.5 Hyperlipidemia, unspecified; Z80.42 Family history of malignant neoplasm of prostate; Z80.8 Family history of malignant neoplasm of other organs or systems; Z85.46 Personal history of malignant neoplasm of prostate